=== PATIENT | female | born 1985 | race Caucasian/White ===

== ENCOUNTER 2017-01-12 18:29 | Emergency (ER) | payer OTHER ==
[~2017-01-12] VITALS: Ht 160 cm; Wt 107.4 kg
[~2017-01-12 18:29] MED LIST: 12 HOUR DECONG120 M1 PO; FLAGYL500 MG PO; HYCODAN SYRUP480 ML PO; KEFLEX500 MG PO; LEVAQUIN750 MG PO; MOTRIN600 MG PO; MOTRIN800 MG PO; MUPIROCIN15 GM TP; NEXIUM40 MG PO; NOHOMEMEDS; PERCOCET 5/31 TABLET PO; PRE NATAL VITAMINS; PRILOSEC40 MG PO; PROTONIX40 MG PO; ROBAXIN750 MG PO; TAMIFLU75 MG PO; ULTRAM50 MG PO; VICODIN 5-3001 EACH PO; VITAMIN D5000 UNIT PO; ZOLOFT50 MG PO; [UNRECOGNIZED DRUG - OTHER] PO
[2017-01-12] MEDS ORDERED: MOTRIN800 MG PO (20:56)
[2017-01-12 21:33] VITALS: BP 125/89
== END 2017-01-12 21:33 | disposition home or self-care (01) ==
LOC: EME 18:29
DX: M77.31 Calcaneal spur, right foot (principal); F17.200 Nicotine dependence, unspecified, uncomplicated
CPT/HCPCS: 73630; 99281; 99284

== ENCOUNTER 2017-03-12 13:27 | Emergency (ER) | payer OTHER ==
[~2017-03-12] VITALS: Ht 160 cm; Wt 107.4 kg
[2017-03-12] MEDS ORDERED: VENTOLIN HFA18 GM IH (16:18)
[2017-03-12] MEDS ORDERED: TESSALON PERLE100 MG PO (16:18)
[2017-03-12 16:22] VITALS: BP 149/100
[2017-03-12 16:26] LABS: INFLUENZA A VIRAL ANTIGEN NEGATIVE; INFLUENZA B VIRAL ANTIGEN NEGATIVE
[2017-03-13] MEDS ORDERED: ROBITUSSIN AC,T10 ML PO (22:24)
[2017-03-13] MEDS ORDERED: VENTOLIN HFA18 GM IH (22:24)
[2017-03-13] MEDS ORDERED: MEDROL DOSEPAK4 MG PO (22:24)
[2017-03-13] MEDS ORDERED: ZITHROMAX Z-PA250 MG PO (22:24)
== END 2017-03-12 22:50 | disposition home or self-care (01) ==
LOC: EME 13:27
PROVIDERS: Nurse Practitioner Family
DX: J06.9 Acute upper respiratory infection, unspecified (principal); M79.7 Fibromyalgia; K21.9 Gastro-esophageal reflux disease without esophagitis; F41.9 Anxiety disorder, unspecified; F32.9 Major depressive disorder, single episode, unspecified; F31.9 Bipolar disorder, unspecified
CPT/HCPCS: 71020; 87502; 87651 90; 94640; 99281; 99284

== ENCOUNTER 2017-03-13 20:41 | Emergency (ER) | payer OTHER ==
[~2017-03-13] VITALS: Ht 160 cm; Wt 100.0 kg
[~2017-03-13 20:41] MED LIST changes: +TESSALON PERLE100 MG PO; +VENTOLIN HFA18 GM IH
[2017-03-13] MEDS ORDERED: MEDROL DOSEPAK4 MG PO (22:24)
[2017-03-13] MEDS ORDERED: VENTOLIN HFA18 GM IH (22:24)
[2017-03-13] MEDS ORDERED: ROBITUSSIN AC,T10 ML PO (22:24)
[2017-03-13] MEDS ORDERED: ZITHROMAX Z-PA250 MG PO (22:24)
[2017-03-13 22:50] VITALS: BP 144/88
== END 2017-03-13 22:51 | disposition home or self-care (01) ==
LOC: EME 20:41 → EXP 20:41
DX: J20.9 Acute bronchitis, unspecified (principal); F17.210 Nicotine dependence, cigarettes, uncomplicated; M79.7 Fibromyalgia; K21.9 Gastro-esophageal reflux disease without esophagitis; F41.9 Anxiety disorder, unspecified; F32.9 Major depressive disorder, single episode, unspecified; F31.9 Bipolar disorder, unspecified
CPT/HCPCS: 71020; 94640; 99281; 99284; J7512

== ENCOUNTER 2017-06-04 00:04 | Emergency (ER) | payer OTHER ==
[~2017-06-04] VITALS: Ht 160 cm; Wt 105.6 kg
[~2017-06-04 00:04] MED LIST changes: +MEDROL DOSEPAK4 MG PO; +PREDNISONE20 MG PO; +ROBITUSSIN AC,T10 ML PO; +ZITHROMAX Z-PA250 MG PO
[2017-06-04 00:27] LABS: HEMATOCRIT 41.2 % (36.0-46.0); HEMOGLOBIN 13.8 G/DL (11.9-15.5); MCH 29.9 PG (29.0-34.0); MCHC 33.5 G/DL (30.0-36.0); MCV 89.4 FL (83-99); PLATELET COUNT 287 K/uL (156-360); RBC DIS.WIDTH-CV 13.1 % (11.8-14.6); RBC DIS.WIDTH-SD 43.1 % (39-53); RED BLOOD COUNT 4.61 M/uL (3.80-5.20); WHITE BLOOD COUNT 7.7 K/uL (4.1-10.2)
[2017-06-04 00:38] LABS: CHLORIDE 110 mEq/L (99-109); POTASSIUM 3.9 mEq/L (3.7-5.4); SODIUM 140 mEq/L (136-147)
[2017-06-04 00:40] LABS: GLUCOSE 102 mg/dL (70-99); TOTAL PROTEIN 7.3 g/dL (6.4-8.3)
[2017-06-04 00:42] LABS: TOTAL BILIRUBIN 0.3 mg/dL (0.0-1.0)
[2017-06-04 00:44] LABS: ALKALINE PHOSPHATASE 164 IU/L (3-129); CREATININE 0.8 mg/dL (0.6-1.3); GFR ESTIMATE (CALCULATED) > 59 mL/min/
[2017-06-04 00:45] LABS: UREA NITROGEN (BUN) 13 mg/dL (9-23)
[2017-06-04 00:46] LABS: APPEARANCE SL.HAZY ((CLEAR)); BILIRUBIN NEGATIVE; BLOOD NEGATIVE; COLOR YELLOW ((YELLOW)); GLUCOSE (STRIP) NEGATIVE; KETONES NEGATIVE; LEUKOCYTES NEGATIVE; NITRITE NEGATIVE; PROTEIN (STRIP) NEGATIVE; SPECIFIC GRAVITY 1.021 (1.000-1.030)
[2017-06-04 00:46] LABS: AST (GOT) 14 IU/L (2-34)
[2017-06-04 00:47] LABS: ALT (GPT) 29 IU/L (3-49)
[2017-06-04 00:48] LABS: BACTERIA NONE SEEN /HPF; EPITHELIAL CELLS 2+ /HPF; MUCUS TRACE /LPF; RED BLOOD CELLS 0-5 /HPF (0-5); UCUL ADDED? NO; WHITE BLOOD CELLS 0-5 /HPF (0-5)
[2017-06-04 00:53] LABS: QUANTITATIVE HCG < 4.0 MIU/ML
[2017-06-04] MEDS ORDERED: ULTRAM50 MG PO (04:50)
[2017-06-04 04:57] VITALS: BP 150/101
== END 2017-06-04 04:57 | disposition home or self-care (01) ==
LOC: EME 00:04
DX: M54.41 Lumbago with sciatica, right side (principal); M79.7 Fibromyalgia; K21.9 Gastro-esophageal reflux disease without esophagitis; F41.9 Anxiety disorder, unspecified; F32.9 Major depressive disorder, single episode, unspecified; F17.200 Nicotine dependence, unspecified, uncomplicated
CPT/HCPCS: 80053; 81003; 84702; 85027; 99281; 99283

== ENCOUNTER 2017-06-21 21:29 | Emergency (ER) | payer OTHER ==
[~2017-06-21] VITALS: Ht 160 cm; Wt 104.5 kg
[2017-06-21 22:01] LABS: HEMATOCRIT 41.1 % (36.0-46.0); HEMOGLOBIN 13.5 G/DL (11.9-15.5); MCH 29.2 PG (29.0-34.0); MCHC 32.8 G/DL (30.0-36.0); MCV 88.8 FL (83-99); PLATELET COUNT 310 K/uL (156-360); RBC DIS.WIDTH-CV 12.9 % (11.8-14.6); RBC DIS.WIDTH-SD 41.9 % (39-53); RED BLOOD COUNT 4.63 M/uL (3.80-5.20); WHITE BLOOD COUNT 9.3 K/uL (4.1-10.2)
[2017-06-21 22:15] LABS: CHLORIDE 103 MEQ/L (99-109); POTASSIUM 3.9 MEQ/L (3.7-5.4); SODIUM 134 MEQ/L (136-147)
[2017-06-21 22:20] LABS: CREATININE 0.6 MG/DL (0.6-1.3); GFR ESTIMATE (CALCULATED) > 59 mL/min/; GLUCOSE 98 mg/dL (70-99); UREA NITROGEN (BUN) 11 mg/dL (9-23)
[2017-06-21 22:23] LABS: QUANTITATIVE HCG < 4.0 MIU/ML
[2017-06-21 23:27] LABS: APPEARANCE SL.HAZY ((CLEAR)); BILIRUBIN NEGATIVE; BLOOD NEGATIVE; COLOR YELLOW ((YELLOW)); GLUCOSE (STRIP) NEGATIVE; KETONES NEGATIVE; LEUKOCYTES NEGATIVE; NITRITE NEGATIVE; PROTEIN (STRIP) NEGATIVE; SPECIFIC GRAVITY 1.019 (1.000-1.030)
[2017-06-21 23:42] LABS: BACTERIA RARE /HPF; EPITHELIAL CELLS RARE /HPF; MUCUS TRACE /LPF; RED BLOOD CELLS 0-5 /HPF (0-5); WHITE BLOOD CELLS 0-5 /HPF (0-5)
[2017-06-22] MEDS ORDERED: FLEXERIL10 MG PO (01:01)
[2017-06-22] MEDS ORDERED: NAPROSYN500 MG PO (01:01)
[2017-06-22 01:18] LABS: TROP-I INTERPRETATION NEGATIVE; TROPONIN-I < 0.01 ng/mL (0.0-0.30)
[2017-06-22 01:32] VITALS: BP 129/85
== END 2017-06-22 01:34 | disposition home or self-care (01) ==
LOC: EME 21:29
PROVIDERS: Nurse Practitioner Family
DX: R55 Syncope and collapse (principal); R07.89 Other chest pain; N91.2 Amenorrhea, unspecified; G89.29 Other chronic pain; M54.5 Low back pain; F17.200 Nicotine dependence, unspecified, uncomplicated
CPT/HCPCS: 70450; 71046; 80048; 81003; 84484; 84702; 85027; 93005; 99281; 99284